=== PATIENT | male | born 1980 | race Caucasian/White ===

== ENCOUNTER 2022-07-31 12:18 | Emergency (ER) | payer OTHER, SELFPAY ==
[2022-07-31 12:30] VITALS: BP 117/78; PULSE 76; RESP 19; TEMP 36.9; O2SAT 98; BMI 26.4
--- NOTE | 2022-07-31 13:00 | EXP.UTC ---
Discharge Plan Disposition Patient Disposition: Home, Self-Care Condition: Good Prescriptions Prescriptions: New penicillin V potassium 500 mg tablet 500 mg PO TID 10 Days Qty: 30 0RF Referrals Follow up/Referrals: Provider,Referral, MD [Primary Care Provider] - See instructions Clinical Impressions Clinical Impression: Dental infection, Headache Discharge ED Provider: Yamile Krishnan Jose Antonio [facility] HPI <Yamile Krishnan APRN - Last Filed: 07/31/22 13:52> General Chief complaint: Headache Stated complaint: LUCIO, body sweats, mouth pain Mode of Arrival: Ambulatory Source of Information: Patient Limitations: No Limitations Time Seen by Provider: 07/31/22 13:00 Description of Symptoms (Recalled from Triage Doc. by RN): left front tooth is infected. Has major mouth and head pain. Some time when he stands up he feels like he will pass out. HEENT Symptoms (Recalled from RN notes): Yes Resp Symptoms (Recalled from RN notes): No Skin Symptoms (Recalled from RN notes): No MS Symptoms (Recalled from RN notes): No Functional Status (Recalled from RN notes): n/a History of Present Illness Provider Complaint: Patient states that he has has a bad front tooth for several weeks and he has been trying to pull it at home States that since Sunday he has been having the worst headache of his life and does not have history of headaches States that it makes him feel dizzy and almost passed out several times States that the pain is like in the middle of his forehead and goes across the top of his head and into back of head. States that he just feels off in his head said she is worried the infection from the tooth has spread and was very anxious Related Data Previous Rx's Medication Instructions Recorded penicillin V potassium 500 mg 500 mg PO TID 10 days #30 tabs 07/31/22 tablet Allergies Allergy/AdvReac Type Severity Reaction Status Date / Time No Known Allergies Allergy Verified 07/31/22 12:53 Worker's Comp Is this a Worker's Comp case?: No PFSH <Yamile Krishnan APRN - Last Filed: 07/31/22 13:52> [facility] Disclaimer: The information contained in this section may have been updated after the patient was seen, as this information can be updated by other users. Medical History Degenerative disc disease Surgical History S/P ligament repair Social History (Updated 07/31/22 @ 13:45 by Miguel Guillory DO) Smoking Status: Current every day smoker alcohol intake: never current occupational status: other Travel in the last 8 weeks: None <Yamile Amaya Eulogio, [employer]AMINA SE[employer]ER - Last Filed: 07/31/22 13:52> ROS Obtained: Yes All systems reviewed & no additional complaints except as documented and Yes Systems reviewed as appropriate & no additional complaints except as documented Constitutional Constitutional: Reports system reviewed and no additional complaints, except as documented, Reports as per HPI, Reports excessive sweating, Denies fever(s), Reports headache(s) (reports worst headache of his life ) and Reports weakness Eyes Eyes: Reports system reviewed and no additional complaints, except as documented and Reports as per HPI ENT Ears, Nose, Mouth, and Throat: Reports system reviewed and no additional complaints, except as documented, Reports as per HPI, Reports dental pain, Reports disequilibrium, Reports dizziness and Reports headache(s) (reports worst headache of his life ) Cardiovascular Cardiovascular: Reports system reviewed and no additional complaints, except as documented, Reports as per HPI and Denies chest pain Respiratory Respiratory: Reports system reviewed and no additional complaints, except as documented and Reports as per HPI Gastrointestinal Gastrointestingal: Reports system reviewed and no additional complaints, except as documented and as per HPI Neurologic Neurologic: Reports system reviewed and no additional comp
[2022-07-31 13:25] VITALS: BP 137/86; PULSE 82; RESP 16; TEMP 36.9; O2SAT 97; BMI 26.5
[2022-07-31 13:39] VITALS: BP 138/84; PULSE 69
[2022-07-31 13:40] VITALS: BP 149/90; BP 166/101; PULSE 66; PULSE 82
[2022-07-31 13:50] VITALS: BP 166/91; PULSE 88; RESP 17; TEMP 36.6; O2SAT 97
== END 2022-07-31 14:05 | disposition home or self-care (01) ==
LOC: UTC 12:22 → ER 13:01
PROVIDERS: Emergency Provider Family Medicine
DX: R51.9 Headache, unspecified (principal); F17.200 Nicotine dependence, unspecified, uncomplicated
CPT/HCPCS: 96374; 99283; 99284

== ENCOUNTER 2023-08-05 15:30 | Emergency (ER) | payer OTHER, SELFPAY ==
[2023-08-05 15:40] VITALS: BMI 26.6
--- NOTE | 2023-08-05 15:40 | XR_ITS ---
PROCEDURE INFORMATION: Exam: XR Right Ankle Exam date and time: 08/05/2023 3:45 PM Age: 42 years old Clinical indication: Injury or trauma; Fall; Blunt trauma; Ankle; Right; Additional info: Fell and rolled ankle TECHNIQUE: Imaging protocol: Radiologic exam of the right ankle. Views: 3 or more views. COMPARISON: No relevant prior studies available. FINDINGS: Bones/joints: Small ossific shawn is noted at the medial malleolus on the frontal and oblique projection. Nondisplaced distal fibular head fracture is noted. Soft tissues: Diffuse circumferential soft tissue swelling, concentrated about the fibular head. Anterior ankle effusion is present. IMPRESSION: 1. Nondisplaced distal fibular head fracture. 2. Avulsion fracture of the medial malleolus. 3. Associated soft tissue posttraumatic change as detailed above..
[2023-08-05 15:41] VITALS: BP 118/84; PULSE 53; RESP 20; TEMP 36.8; O2SAT 100; BMI 26.6
--- NOTE | 2023-08-05 15:42 | ED_ITS ---
Discharge Plan Disposition Patient Disposition: Home, Self-Care Condition: Good Prescriptions Prescriptions: No Action penicillin V potassium 500 mg tablet 500 mg PO TID 10 Days Qty: 30 0RF Referrals Follow up/Referrals: Regis Jarrett DO [Staff Physician] - See instructions Activity Restrictions/Add. Instructions Additional Instructions/Restrictions: Please take Tylenol alternating every 4 hours with Motrin as needed for pain. You are advised to be nonweightbearing and utilize crutches. Please call tomorrow to make an appointment at Dr. Jarrett's office but he plans to see you on . Return to ER for any worsening signs or symptoms including numbness tingling increasing pain as needed. Clinical Impressions Clinical Impression: Syncope, vasovagal Closed fibular fracture Qualifiers: Encounter type: initial encounter Fibula location: distal Laterality: right Stand Alone Forms Stand Alone Forms: Work/School Release Discharge ED Provider: Cammie Camp General Adult HPI <NICOLA Sorto - Last Filed: 08/05/23 16:08> General Chief complaint: Syncope Stated complaint: AO 08/05/23 Injury right ankle,passed out Time Seen by Provider: 08/05/23 15:41 History of Present Illness HPI narrative: Patient presents for evaluation of syncope. Patient was accompanying a friend to the outpatient laboratory today. Patient reports that he watched the nurse take around in his arm and he felt hot and lightheaded. He excused himself to go into the hallway and felt woozy . Patient had a witnessed syncopal event by his friend accompanying him. He states patient leaned against the wall sat down and appeared to pass out. He did not strike his head. However patient reports upon regaining consciousness which happened very quickly that he had right ankle pain. It is difficult for him to bear weight. Patient has never had an event like this before. He denies cardiac history chest pain palpitations. Related Data Previous Rx's Medication Instructions Recorded penicillin V potassium 500 mg 500 mg PO TID 10 days #30 tabs 07/31/22 tablet Allergies Allergy/AdvReac Type Severity Reaction Status Date / Time No Known Allergies Allergy Verified 07/31/22 12:53 PFSH <NICOLA Sorto - Last Filed: 08/05/23 16:08> [facility] Disclaimer: The information contained in this section may have been updated after the patient was seen, as this information can be updated by other users. Medical History Degenerative disc disease Surgical History S/P ligament repair Social History (Updated 07/31/22 @ 13:45 by Miguel Guillory DO) Smoking Status: Never smoker alcohol intake: never current occupational status: other Travel in the last 8 weeks: None <NICOLA Sorto - Last Filed: 08/05/23 16:08> ROS Obtained: Yes Systems reviewed as appropriate & no additional complaints except as documented Physical Exam <NICOLA Sorto - Last Filed: 08/05/23 16:08> General General appearance: alert and in no apparent distress Head Head exam: atraumatic and normal inspection Eye Eye exam: Present normal appearance, PERRL and EOMI ENT ENT exam: Present normal exam, normal oropharynx and mucous membranes moist Neck Neck exam: Present normal inspection and full ROM; Absent tenderness Chest Chest inspection: Present normal inspection and symmetric chest wall rise; Absent tenderness Respiratory Respiratory exam: Present normal lung sounds bilaterally; Absent respiratory distress or accessory muscle use Cardiovascular Cardiovascular exam: Present regular rate, normal rhythm, normal heart sounds, +S1 and +S2 Abdominal Exam Abdominal exam: Present soft and normal bowel sounds; Absent tenderness Extremities Exam Extremities exam: Present normal inspection Back Exam Back exam: Present normal inspection and full ROM; Absent tenderness Neurological Exam Neurological exam: Present alert, oriented X3 and CN II-XII intact Psychiatric Psychiatric exam: Present normal affect and normal mood Skin Skin exam: Present warm, dry and normal color Other Other exam information: The 3 unaffected extremities are intact grossly to exam with full range of motion. Patient has tenderness to palpation at the lateral malleolus but above it. There is no obvious deformity at the moment to palpation and there is no ecchymosis or edema noted. Patient is neurovascular intact distally. Medical Decision Making <NICOLA Sorto - Last Filed: 08/05/23 16:08> Medical Records Medical records reviewed: Yes I reviewed the patient's medical records. [place] Inquiry Pt receiving controlled substance: No Vital Signs: 08/05/23 15:41 08/05/23 16:24 Temperature 98.2 F 98.2 F Temperature Source Oral Pulse Rate 53 L Pulse Rate [Left Radial] 53 L Respiratory Rate 20 12 Blood Pressure 118/84 Blood Pressure [Right Arm] 118/84 Blood Pressure Mean [Right Arm] 95 02 Sat by Pulse Oximetry 100 Oxygen Delivery Method Room Air Orders (Tests/Meds): ED MEDICATIONS Discontinued Medications Generic Name Dose Route Start Last Admin Trade Name Neena PRN Reason Stop Dose Admin Acetaminophen 1,000 mg 08/05/23 16:01 08/05/23 16:11 Acetaminophen 500mg Tab PO 08/05/23 16:02 1,000 mg ONCE ONE Administration Ketorolac Tromethamine 30 mg 08/05/23 16:01 08/05/23 16:12 Ketorolac 30mg/Ml Vial IM 08/05/23 16:02 30 mg ONCE ONE Administration ORDERS Category Date Time Status XR ankle RT min 3V Stat Exams 08/05/23 15:40 Completed Medical Decision Narrative: In summary patient is a 42-year-old male who presents to the emergency department for evaluation of syncope. Patient is dynamically stable upon arrival, febrile. Physical exam is remarkable for pain at the right lateral malleolus without evidence of obvious deformity and patient is neurovascularly intact distally. There is no ecchymosis or edema noted currently. Patient's [place] Coma Scale is 15 heart rate is normal and shows sinus rhythm on the bedside monitor.. Differential diagnosis includes vasovagal syncope versus cardiogenic syncope versus ankle sprain versus fracture of the right ankle. Initial workup will be conducted with EKG fingerstick blood sugar and plain film x-rays. Initial interventions include Toradol and Tylenol. Initial workup reviewed by me by informal review of his plain film x-ray shows a distal nondisplaced fibula fracture. I had an interactive discussion with Dr. Jarrett of orthopedics outpatient management. Patient will be placed in a walking boot and nonweightbearing until follow-up with orthopedics which will be next . Upon repeat evaluation had interactive discussion with the patient about Dr. Jarrett's recommendations including nonweightbearing and follow-up in clinic on and calling on Sunday for an appointment. Patient verbalized understanding and agreement.. Given this is appropriate for discharge home with nonweightbearing in a walking boot and crutches. <Cammie Camp MD - Last Filed: 08/05/23 20:52> Vital Signs: 08/05/23 15:41 08/05/23 16:24 Temperature 98.2 F 98.2 F Temperature Source Oral Pulse Rate 53 L Pulse Rate [Left Radial] 53 L Respiratory Rate 20 12 Blood Pressure 118/84 Blood Pressure [Right Arm] 118/84 Blood Pressure Mean [Right Arm] 95 02 Sat by Pulse Oximetry 100 Oxygen Delivery Method Room Air Orders (Tests/Meds): ED MEDICATIONS Discontinued Medications Generic Name Dose Route Start Last Admin Trade Name Neena PRN Reason Stop Dose Admin Acetaminophen 1,000 mg 08/05/23 16:01 08/05/23 16:11 Acetaminophen 500mg Tab PO 08/05/23 16:02 1,000 mg ONCE ONE Administration Ketorolac Tromethamine 30 mg 08/05/23 16:01 08/05/23 16:12 Ketorolac 30mg/Ml Vial IM 08/05/23 16:02 30 mg ONCE ONE Administration ORDERS Category Date Time Status XR ankle RT min 3V Stat Exams 08/05/23 15:40 Completed ECG Data Tracing #1: I reviewed this ECG and interpreted as documented below: ECG initial impression date: 08/05/23 ECG initial impression time: 15:59 ECG normal with no acute: arrhythmias, ischemia, conduction abnormalities, chamber hypertrophy Arrhythmias present: sinus jimenez ECG compared to prior tracings: there are no prior tracings available for comparison Medical Decision Narrative: In summary patient is a 42-year-old male who presents to the emergency department for evaluation of syncope. Patient is dynamically stable upon arrival, febrile. Physical exam is remarkable for pain at the right lateral malleolus without evidence of obvious deformity and patient is neurovascularly intact distally. There is no ecchymosis or edema noted currently. Patient's [place] Coma Scale is 15 heart rate is normal and shows sinus rhythm on the bedside monitor.. Differential diagnosis includes vasovagal syncope versus cardiogenic syncope versus ankle sprain versus fracture of the right ankle. Initial workup will be conducted with EKG fingerstick blood sugar and plain film x-rays. Initial interventions include Toradol and Tylenol. Initial workup reviewed by me by informal review of his plain film x-ray shows a distal nondisplaced fibula fracture. I had an interactive discussion with Dr. Jarrett of orthopedics outpatient management. Patient will be placed in a walking boot and nonweightbearing until follow-up with orthopedics which will be next . Upon repeat evaluation had interactive discussion with the patient about Dr. Jarrett's recommendations including nonweightbearing and follow-up in clinic on and calling on Sunday for an appointment. Patient verbalized understanding and agreement.. Given this is appropriate for discharge home with nonweightbearing in a walking boot and crutches. Cammie Camp MD Attestation: I was consulted by the MAYCO and we discussed the complexity of the problems being addressed. I approved the treatment and management plan for this patient's care in the emergency department, thus performing a substantive portion of the medical decision making. Critical Care <NICOLA Sorto - Last Filed: 08/05/23 16:08> Critical Care Time Critical Care Time: No
--- NOTE | 2023-08-05 15:55 | ECG_ITS ---
APPROVED REPORT Exam: Resting ECG HR:50 bpm ECG Measurements Heart Rate 50 AXES MA 180 P 54 QRSd 110 QRS 16 QT 406 T 43 QTc 378 Conclusion SINUS BRADYCARDIA LOW QRS VOLTAGE IN PRECORDIAL LEADS [QRS DEFLECTION < 1.0 mV IN CHEST LEADS] BORDERLINE ECG Electronically signed by : LASHONDA FLOYD, 08/06/2023 15:29:04
[2023-08-05] MEDS: ACETAMINOPHEN 500MG TAB 1000 MG PO (16:11)
[2023-08-05] MEDS: KETOROLAC 30MG/ML VIAL 30 MG IM (16:12)
[2023-08-05 16:24] VITALS: BP 118/84; PULSE 53; RESP 12; TEMP 36.8
== END 2023-08-05 16:25 | disposition home or self-care (01) ==
PROVIDERS: Emergency Provider Emergency Medicine
DX: R55 Syncope and collapse (principal); M25.571 Pain in right ankle and joints of right foot; R00.1 Bradycardia, unspecified; S82.54XA Nondisplaced fracture of medial malleolus of right tibia, initial encounter for closed fracture; S82.831A Other fracture of upper and lower end of right fibula, initial encounter for closed fracture; W19.XXXA Unspecified fall, initial encounter
CPT/HCPCS: 73610; 93005; 96372; 99283

== ENCOUNTER 2023-08-23 09:45 | Outpatient (CLI) | payer OTHER, SELFPAY ==
--- NOTE | 2023-08-23 09:58 | XR_ITS ---
FINAL REPORT CLINICAL HISTORY: Rt Ankle Fx; f/u COMPARISON: 08/05/2023 FINDINGS: RIGHT ANKLE: Three views of the right ankle were obtained. There is a nondisplaced fracture of the lateral malleolus, that is not significantly changed since the prior exam of August 04. There is persistent lateral soft tissue swelling present. The joint spaces and mortise are intact. IMPRESSION: Nondisplaced fracture of the right lateral malleolus, not significantly changed since the prior exam of August 04. There is persistent lateral soft tissue swelling. Reviewed, Interpreted and Dictated by Nhan Santos III, MD Transcribed by Nathaly Ghosh Authenticated and [facility]
== END 2023-08-23 23:59 | disposition home or self-care (01) ==
LOC: RAD 09:46
PROVIDERS: PCP Family Medicine; Visit Provider Physician Assistant Surgical
DX: M25.571 Pain in right ankle and joints of right foot (principal)
CPT/HCPCS: 73610

== ENCOUNTER 2023-09-13 10:37 | Outpatient (CLI) | payer OTHER, SELFPAY ==
--- NOTE | 2023-09-13 10:42 | XR_ITS ---
FINAL REPORT CLINICAL HISTORY: rt ankle fx COMPARISON: 08/23/2023 FINDINGS: Right ankle Three views were obtained. There is a persistent oblique fracture of the lateral malleolus. The alignment is stable. IMPRESSION: Persistent fracture as above. Reviewed, Interpreted and Dictated by Nhan Santos III, MD Transcribed by Maureen Parks Authenticated and . [facility]
== END 2023-09-13 23:59 | disposition home or self-care (01) ==
LOC: RAD 10:37
PROVIDERS: PCP Family Medicine; Visit Provider Physician Assistant Surgical
DX: M25.571 Pain in right ankle and joints of right foot (principal); S82.831A Other fracture of upper and lower end of right fibula, initial encounter for closed fracture
CPT/HCPCS: 73610

== ENCOUNTER 2023-10-09 10:20 | Outpatient (CLI) | payer OTHER, SELFPAY ==
--- NOTE | 2023-10-09 10:24 | XR_ITS ---
FINAL REPORT CLINICAL HISTORY: Rt Ankle pain FINDINGS: Right ankle Three views were obtained. There is a nondisplaced fracture of the lateral malleolus. Lateral soft tissue swelling is seen. IMPRESSION: Fracture as above. Reviewed, Interpreted and Dictated by Nhan Santos III, MD Transcribed by Maureen Parks Authenticated and . [facility]
== END 2023-10-09 23:59 | disposition home or self-care (01) ==
LOC: RAD 10:21
PROVIDERS: PCP Family Medicine; Visit Provider Orthopaedic Surgery
DX: M25.571 Pain in right ankle and joints of right foot (principal)
CPT/HCPCS: 73610